=== PATIENT | male | born 1940 | race Caucasian/White ===

== ENCOUNTER 2018-01-03 07:22 | Inpatient (IN) | payer MEDICARE, OTHER ==
[~2018-01-03] VITALS: Ht 177.8 cm; Wt 84.8 kg
[2018-01-03] MEDS ORDERED: SODIUM CHLORIDE 0.9% 1000ML 1,000 ML IV STA (07:51)
[2018-01-03 08:12] LABS: BASOPHILS % 0.3 % (0.0-1.0); EOSINOPHILS % 0.1 % (0.0-6.0); HEMATOCRIT 38.2 % (38.2-49.6); HEMOGLOBIN 14.1 g/dL (14.0-18.0); LYMPHOCYTES % 11.5 % (18.0-39.1); MEAN CORPUSCULAR HGB CONC 36.9 g/dL (31-35); MONOCYTES # (AUTO) 0.6 (0.2-0.8); MONOCYTES % 7.3 % (4.4-11.3); NEUTROPHILS # (AUTO) 7.1 (2.1-6.9); NEUTROPHILS % 80.3 % (38.7-80.0); RED BLOOD COUNT 4.55 x10e6/uL (4.3-5.7); RED CELL DISTRIBUTION WIDTH 12.3 % (11.7-14.4)
[2018-01-03 08:13] LABS: PLATELET COUNT 79 x10e3/uL (140-360)
[2018-01-03 08:20] LABS: BILIRUBIN,URINE NEGATIVE (NEGATIVE); CLARITY,URINE SL CLOUDY (CLEAR); COLOR,URINE YELLOW (YELLOW); KETONES,URINE TRACE (NEGATIVE); LEUKOCYTE ESTERASE ,URINE NEGATIVE (NEGATIVE); NITRITE,URINE NEGATIVE (NEGATIVE); PROTEIN,URINE DIPSTICK 2+ (NEGATIVE); URINE UROBILINOGEN 0.2 mg/dL (0.2 - 1)
[2018-01-03 08:30] LABS: CALCIUM 9.1 mg/dL (8.4-10.2); CREATININE, SERUM 1.21 mg/dL (0.72-1.25)
[2018-01-03 08:32] LABS: RBC,URINE 0-5 /HPF (0-5); WBC,URINE (MAN) 0-5 /HPF (0-5)
[2018-01-03 08:33] LABS: BACTERIA,URINE MANY /HPF; EPITHELIAL CELLS,URINE RARE /LPF
[2018-01-03] MEDS ORDERED: CEFTRIAXONE SOD 1 GM VIAL IV SCH (09:00)
[2018-01-03 09:06] LABS: INR 1.15; PARTIAL THROMBOPLASTIN TIME 30.1 seconds (23.8-35.5); PROTHROMBIN TIME 13.8 seconds (11.9-14.5)
[2018-01-03] MEDS: ONDANSETRON HCL INJ 2 MG/ML VIAL IV PRN (09:28)
--- NOTE | 2018-01-03 09:42 | Diagnostic Imaging Report ---
PROCEDURE: CHEST SINGLE (PORTABLE) COMPARISON: None. INDICATIONS: FEVER, WEAK, FALL FINDINGS: LUNGS: No consolidations or edema. Several calcified granulomas. Mild interstitial prominence. PLEURA: Multiple calcified pleural plaques. HEART \T\ MEDIASTINUM: The heart is within normal size-limits. BONES \T\ SOFT TISSUES: No acute findings. CONCLUSION: 1. Multiple calcified pleural plaques. 2. Mild interstitial prominence is nonspecific. Pete Davalos D.O. Dictated by: Pete Davalos D.O. on 01/03/2018 at 8:34 Electronically approved by: Pete Davalos D.O. on 01/03/2018 at 8:34
[2018-01-03] MEDS: SODIUM CHLORIDE 0.9% 1000ML 1,000 ML IV SCH ×2 (10:27→17:12)
[2018-01-03 10:29] LABS: AMYLASE 66 U/L (25-125); LIPASE 62 U/L (8-78)
[2018-01-03 11:39] VITALS: BP 152/95
--- NOTE | 2018-01-03 11:39 | Diagnostic Imaging Report ---
EXAM: Complete Abdominal Ultrasound INDICATION: \S\R/O GALL STONES \[id number] \S\1020 COMPARISON: None. TECHNIQUE: Transverse and longitudinal images of the upper abdomen were obtained. FINDINGS: Liver: Size: 17.5 cm in the right midclavicular line, mildly enlarged Appearance: Increased echogenicity, smooth contour Mass: No focal masses Spleen: Size: 11.3 cm in length, normal Echogenicity: Normal Mass: No focal masses. Multiple echogenic foci are probably calcified granulomas. Gallbladder: Limited visualization due to bowel gas. Stones/Sludge: None Wall: 0.3 cm Appearance: No pericholecystic fluid or hydrops. Sonographic Huddleston's Sign: Negative Bile Ducts: Intrahepatic Ducts: No dilatation Extrahepatic Ducts: Common bile duct measures 0.5 cm, no dilatation Pancreas: Visualized pancreas is unremarkable. Right Kidney: Size: 11.7 cm Echogenicity: Normal Parenchymal thickness: Normal Collecting System: No hydronephrosis Stone: None Cyst/Mass: None Left Kidney: Size: 11.2 cm Echogenicity: Normal Parenchymal thickness: Normal Collecting System: No hydronephrosis Stone: None Cyst/Mass: None Vessels: Aorta: Visualized portions are normal Inferior Vena Cava: Visualized portions are normal Main Portal Vein: 1 cm, normal size with hepatopetal flow. Free Fluid: No ascites or pleural effusion IMPRESSION: Mildly enlarged steatotic liver. Evaluation of gallbladder is limited due to overlying bowel gas and suboptimal distention. However, no definite gallstones visualized. Signed by: Dr. Jona Banuelos MD on 01/03/2018 11:36 AM
[2018-01-03] MEDS: PIPER-TAZ 3.375 GM 50 ML IV SCH ×2 (12:00→19:55)
--- NOTE | 2018-01-03 12:13 | Diagnostic Imaging Report ---
PROCEDURE:X-RAY ABDOMEN - KUB COMPARISON:None. INDICATIONS:DIARRHEA FINDINGS: There is a non-obstructed bowel-gas pattern. There are no calcifications projected over the renal shadows. There are no acute osseous abnormalities. Degenerative changes of the spine and bilateral hips. The lung bases are clear. CONCLUSION: Nonobstructive bowel gas pattern. Dictated by: Jona Banuelos M.D. on 01/03/2018 at 12:17 Electronically approved by: Jona Banuelos M.D. on 01/03/2018 at 12:17
--- NOTE | 2018-01-03 13:25 | History and Physical ---
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 HISTORY OF PRESENT ILLNESS: Mr. Edgar Faith is a 77-year-old male patient whom I have seen on this Wednesday, 3 days ago, with a fever of 101, and the patient had some abdominal discomfort and diarrhea, but no urinary symptom, no cough, no sore throat, no chest pain. Subsequently, patient stated that his fever had subsided, but patient was continued to be very weak and continued to have diarrhea. Patient was having chills, shakiness, and tremulousness. This morning, patient was trying to get up and patient had a fall and patient was brought into the ER. The patient also has a poor appetite. ALLERGIES: NO KNOWN DRUG ALLERGIES. SOCIAL HISTORY: Patient used to smoke and does smoke occasionally. Denies using alcohol. REVIEW OF SYSTEMS: As per history of present illness. PAST MEDICAL HISTORY: Hypertension, coronary artery disease. CURRENT MEDICATIONS: See from the list. PHYSICAL EXAMINATION GENERAL: He is an elderly male patient lying in bed not in any acute distress, but patient has tremulousness. VITAL SIGNS: Blood pressure 90/60, temperature 99, pulse rate 100, respiration rate 20. HEENT: Normocephalic, atraumatic. NECK: No JVD. No lymphadenopathy. LUNGS: Bilateral equal air entry. Basal rales present. NEUROLOGICAL: No focal neurological deficit. The patient has generalized tremor. EXTREMITIES: No edema. Right side head, patient has ecchymosis. ADMISSION IMPRESSION AND DIAGNOSES 1. Hyponatremia. 2. Status post orthostatic dizziness, fall and syncope. 3. Thrombocytopenia on a febrile patient. 4. Possible sepsis. 5. Colitis; rule out Clostridium difficile colitis. 6. Urinary tract infection. 7. Hypotension. PLAN: We will admit patient with the above diagnoses, give IV fluids. We will give IV antibiotics, IV Zosyn and Flagyl. We will obtain ID consultation. Job#: [id number] ERMA
[2018-01-03] MEDS: ACETAMINOPHEN 325 MG TAB PO PRN ×2 (13:50→19:55)
[2018-01-03] MEDS: METRONIDAZOLE 500MG/NS 100ML 100 ML IV SCH ×2 (14:00→21:50)
[2018-01-03 15:33] VITALS: BP 137/62
[2018-01-03 16:49] LABS: CREATINE KINASE MB 1.2 ng/mL (0-5.0)
[2018-01-03 17:07] VITALS: BP 152/95
[2018-01-03 18:49] VITALS: BP 152/95
[2018-01-03 20:00] VITALS: BP 141/61
[2018-01-03] MEDS: ATORVASTATIN 10 MG TAB PO SCH (20:07)
[2018-01-03] MEDS ORDERED: AMOXICILLIN/CLAVULANATE K 875 MG TAB PO SCH (21:00)
--- NOTE | 2018-01-03 21:52 | Consultation ---
DATE OF CONSULTATION: January 03, 2018 INFECTIOUS DISEASE CONSULTATION REASON FOR CONSULTATION: Fever and chills, urgency and frequency. HISTORY OF PRESENT ILLNESS: This patient, who is a very pleasant 77-year-old gentleman, denies any past medical history but according to the H\T\P he does have hypertension and coronary artery disease and appendectomy at the age of 15. The patient comes in with a few days' history of fever, chills, not feeling well, some urgency. The patient went to see a physician, gave him some oral antibiotic, but the patient continued to have fever and chills. So, the patient is sent to the hospital to be admitted. He says he also passed out x1. When he first came, he was running a fever of 102.4, heart rate 93, blood pressure 137/62. PHYSICAL EXAMINATION: GENERAL: He is currently alert, oriented, does not seem to be in acute distress. VITAL SIGNS: Stable. Currently afebrile. HEENT: He does not appear icteric. NECK: Supple. CHEST: Clear. HEART: S1 and S2. No S3, no S4, no murmur. ABDOMEN: Soft. Bowel sounds present. No tenderness. EXTREMITIES: No edema. SKIN: There is no rash. JOINTS: There is no erythema or edema. PAST MEDICAL HISTORY: As mentioned above. Hypertension. Heart disease. PAST SURGICAL HISTORY: Appendectomy. ALLERGIES: NKA. SOCIAL HISTORY: He smokes occasionally. REVIEW OF SYSTEMS: Besides what is mentioned above, HEENT: Negative. PULMONARY: Negative. CARDIAC: Negative. GI: Negative. SKIN: There is no rash. Patient had ultrasound of the abdomen which showed mildly enlarged liver. His chest x-ray showed multiple calcified pleural plaques. IMPRESSION: Fever and chills. May be pyelonephritis. It is hard to tell this early. Agree with Blood cultures urine cultures. Unfortunately, they have not been done yet. He is already on antibiotic. Continue with Zosyn. Recheck CBC, recheck chem panel, check amylase/lipase. Will follow with you. Job#: [id number] KIRSTIN
[2018-01-04] VITALS: BP 106/51
[2018-01-04] MEDS: SODIUM CHLORIDE 0.9% 1000ML 1,000 ML IV SCH ×3 (00:56→20:10)
[2018-01-04] MEDS: ACETAMINOPHEN 325 MG TAB PO PRN ×3 (02:07→20:17)
[2018-01-04 03:34] LABS: CREATINE KINASE MB 1.2 ng/mL (0-5.0)
[2018-01-04] MEDS: PIPER-TAZ 3.375 GM 50 ML IV SCH (03:51)
[2018-01-04 04:00] VITALS: BP 139/60
[2018-01-04] MEDS: METRONIDAZOLE 500MG/NS 100ML 100 ML IV SCH (05:07)
[2018-01-04] MEDS: LEVOTHYROXINE SODIUM 112 MCG TAB PO SCH (05:08)
[2018-01-04 05:43] LABS: BASOPHILS % 0.5 % (0.0-1.0); EOSINOPHILS % 0.2 % (0.0-6.0); HEMATOCRIT 32.3 % (38.2-49.6); HEMOGLOBIN 11.8 g/dL (14.0-18.0); LYMPHOCYTES # (AUTO) 0.8 (1.0-3.2); LYMPHOCYTES % 12.9 % (18.0-39.1); MEAN CORPUSCULAR HEMOGLOBIN 31.2 pg (28-32); MEAN CORPUSCULAR HGB CONC 36.5 g/dL (31-35); MEAN CORPUSCULAR VOLUME 85.4 fL (81-99); MONOCYTES # (AUTO) 0.4 (0.2-0.8); MONOCYTES % 6.2 % (4.4-11.3); NEUTROPHILS % 79.6 % (38.7-80.0); PLATELET COUNT 71 x10e3/uL (140-360); RED BLOOD COUNT 3.78 x10e6/uL (4.3-5.7); RED CELL DISTRIBUTION WIDTH 12.7 % (11.7-14.4)
[2018-01-04 05:58] LABS: ALANINE AMINOTRANSFERASE 74 IU/L (0-55); ALBUMIN 2.8 g/dL (3.5-5.0); ALBUMIN/GLOBULIN RATIO 0.9 (0.8-2.0); ALKALINE PHOSPHATASE 40 IU/L (40-150); ANION GAP 11.7 mmol/L (8-16); BLOOD UREA NITROGEN 16 mg/dL (7-26); BUN/CREATININE RATIO 15 (6-25); CARBON DIOXIDE 21 mmol/L (22-29); CHLORIDE 97 mmol/L (98-107); CREATININE, SERUM 1.05 mg/dL (0.72-1.25); EST GLOMERULAR FILTRATION RATE > 60 ML/MIN (60-); GLUCOSE 102 mg/dL (74-118); POTASSIUM 3.7 mmol/L (3.5-5.1); SODIUM 126 mmol/L (136-145)
[2018-01-04 07:19] LABS: ANISOCYTOSIS SLIGHT; BAND NEUTROPHILS % (MANUAL) 1 %; LYMPHOCYTES % (MANUAL) 14 % (19-48); MONOCYTES % (MANUAL) 5 % (3.4-9.0); NEUTROPHILS % (MANUAL) 77 % (40-74); PLATELET ESTIMATE SLIGHTLY DECREASED; PLATELET MORPHOLOGY COMMENT NORMAL; RBC MORPHOLOGY COMMENT NORMAL
[2018-01-04 08:02] VITALS: BP 125/57
[2018-01-04] MEDS: BISOPROLOL FUMARATE 10 MG TAB PO SCH (09:00)
[2018-01-04] MEDS: ASPIRIN 81 MG CHEW TAB PO SCH (09:00)
[2018-01-04 11:00] VITALS: BP 121/67
[2018-01-04] MEDS: CEFEPIME HCL 1 GM VIAL IV SCH ×2 (11:11→23:00)
[2018-01-04] MEDS: METRONIDAZOLE 500 MG TAB PO SCH ×3 (12:00→23:48)
[2018-01-04 16:23] VITALS: BP 95/62
[2018-01-04 20:00] VITALS: BP 132/60
[2018-01-04] MEDS: ATORVASTATIN 10 MG TAB PO SCH (20:10)
[2018-01-05] VITALS (8 sets, daily range): BP systolic 96–195; BP diastolic 52–67
[2018-01-05] MEDS: SODIUM CHLORIDE 0.9% 1000ML 1,000 ML IV SCH ×3 (05:00→19:50)
[2018-01-05] MEDS: LEVOTHYROXINE SODIUM 112 MCG TAB PO SCH (05:01)
[2018-01-05] MEDS: METRONIDAZOLE 500 MG TAB PO SCH ×3 (05:01→17:46)
[2018-01-05 05:28] LABS: BASOPHILS % 0.4 % (0.0-1.0); EOSINOPHILS % 0.4 % (0.0-6.0); HEMATOCRIT 31.1 % (38.2-49.6); HEMOGLOBIN 11.2 g/dL (14.0-18.0); LYMPHOCYTES # (AUTO) 0.8 (1.0-3.2); LYMPHOCYTES % 9.1 % (18.0-39.1); MEAN CORPUSCULAR HEMOGLOBIN 31.2 pg (28-32); MEAN CORPUSCULAR VOLUME 86.6 fL (81-99); MONOCYTES # (AUTO) 0.5 (0.2-0.8); MONOCYTES % 5.5 % (4.4-11.3); NEUTROPHILS # (AUTO) 7.1 (2.1-6.9); NEUTROPHILS % 84.1 % (38.7-80.0); PLATELET COUNT 77 x10e3/uL (140-360); RED BLOOD COUNT 3.59 x10e6/uL (4.3-5.7); RED CELL DISTRIBUTION WIDTH 12.7 % (11.7-14.4)
[2018-01-05 05:52] LABS: ALANINE AMINOTRANSFERASE 73 IU/L (0-55); ALBUMIN 2.7 g/dL (3.5-5.0); ALBUMIN/GLOBULIN RATIO 0.9 (0.8-2.0); ALKALINE PHOSPHATASE 42 IU/L (40-150); ANION GAP 10.8 mmol/L (8-16); BLOOD UREA NITROGEN 14 mg/dL (7-26); BUN/CREATININE RATIO 15 (6-25); CALCIUM 7.9 mg/dL (8.4-10.2); CARBON DIOXIDE 21 mmol/L (22-29); CHLORIDE 99 mmol/L (98-107); CREATININE, SERUM 0.94 mg/dL (0.72-1.25); EST GLOMERULAR FILTRATION RATE > 60 ML/MIN (60-); GLUCOSE 92 mg/dL (74-118); POTASSIUM 3.8 mmol/L (3.5-5.1); SODIUM 127 mmol/L (136-145)
[2018-01-05 06:48] LABS: BAND NEUTROPHILS % (MANUAL) 10 %; EOSINOPHILS % (MANUAL) 1 % (0-7); LYMPHOCYTES % (MANUAL) 7 % (19-48); MONOCYTES % (MANUAL) 3 % (3.4-9.0); NEUTROPHILS % (MANUAL) 77 % (40-74); PROMYELOCYTES % (MANUAL) 1 % (0-0)
[2018-01-05 06:49] LABS: ANISOCYTOSIS SLIGHT; HYPOCHROMASIA SLIGHT; PLATELET ESTIMATE SLIGHTLY DECREASED; PLATELET MORPHOLOGY COMMENT FEW LARGE; RBC MORPHOLOGY COMMENT NORMAL
[2018-01-05] MEDS: ASPIRIN 81 MG CHEW TAB PO SCH (08:10)
[2018-01-05] MEDS: BISOPROLOL FUMARATE 10 MG TAB PO SCH (08:10)
[2018-01-05] MEDS: ACETAMINOPHEN 325 MG TAB PO PRN ×2 (08:20→20:05)
[2018-01-05 09:07] LABS: CLARITY,URINE CLEAR (CLEAR); COLOR,URINE AMBER (YELLOW); LEUKOCYTE ESTERASE ,URINE TRACE (NEGATIVE); NITRITE,URINE NEGATIVE (NEGATIVE); PROTEIN,URINE DIPSTICK 1+ (NEGATIVE)
[2018-01-05 09:08] LABS: BILIRUBIN,URINE NEGATIVE (NEGATIVE); KETONES,URINE 2+ (NEGATIVE); URINE UROBILINOGEN 0.2 mg/dL (0.2 - 1)
[2018-01-05 09:16] LABS: EPITHELIAL CELLS,URINE RARE /LPF; WBC,URINE (MAN) 0-5 /HPF (0-5)
[2018-01-05 09:17] LABS: MUCUS,URINE RARE (RARE)
[2018-01-05] MEDS: CEFEPIME HCL 1 GM VIAL IV SCH ×2 (11:50→22:36)
[2018-01-05] MEDS: VANCOMYCIN 250MG/5ML ORAL SOLN PO SCH ×2 (11:56→17:46)
--- NOTE | 2018-01-05 13:32 | Diagnostic Imaging Report ---
PROCEDURE:CT CHEST WITH CONTRAST COMPARISON:None. INDICATIONS:FEVER, HYPONATREMIA TECHNIQUE: Axial CT images of the chest were obtained from the thoracic inlet to the upper abdomen. Coronal and sagittal reformations were made available for review. A total of 100 cc of Isovue 370 iodinated intravenous contrast was administered. RADIATION DOSE: Total DLP: 775.6 mGy*cm FINDINGS: Lungs: There has been interval development of a 1.5 cm mixed solid/ground glass nodule in the left upper lobe series 4, image 67. Bilateral apical calcified granulomas. There is right apical opacity, which appears increased from CT on 02/18/11, likely reflecting sequela of prior granulomatous disease. Extensive bilateral calcified pleural plaques. Upper lobe predominant centrilobular emphysema is again noted. Subpleural opacity in the right lower lobe on series 4 image 67 likely reflects atelectasis. Pleura: No pleural effusion or pneumothorax. Again noted are numerous bilateral calcified pleural plaques most pronounced at the lung bases, suggestive of remote asbestos exposure. Heart \T\ Mediastinum: The thyroid gland is normal. No significant mediastinal, hilar or axillary lymphadenopathy is seen. A few calcified mediastinal lymph nodes are noted. Atherosclerotic coronary and aortic calcifications are noted. No evidence of pericardial effusion. Pericardial calcification is noted. Upper abdomen:Please refer to the concurrently performed abdominal CT for further details. Musculoskeletal:Scattered degenerative changes. No suspicious lytic or blastic lesions. CONCLUSION: No evidence of pneumonia. Upper lobe predominant emphysematous changes of the lungs. Interval development of a 1.5 cm mixed solid/ground glass nodule in the left upper lobe. Findings suggestive of remote asbestos exposure. Please refer to the separately dictated CT of the abdomen/pelvis for details of intraabdominal findings. RECOMMENDATION: PET/CT for further evaluation of left upper lobe mixed solid/ground glass nodule. Dictated by: YNI GOMEZ M.D. on 01/05/2018 at 13:37 Electronically approved by: YIN GOMEZ M.D. on 01/05/2018 at 13:37
--- NOTE | 2018-01-05 13:43 | Diagnostic Imaging Report ---
PROCEDURE:CT ABDOMEN AND PELVIS WITH CONTRAST COMPARISON:None. INDICATIONS:FEVER, HYPONATREMIA TECHNIQUE: Multidetector CT scanning of the abdomen and pelvis was performed after the administration of 100 cc Isovue 370 contrast. Coronal and sagittal reformations were obtained. Routine protocol performed. FINDINGS: Lung bases: Please refer to concurrently performed chest CT. Liver: No evidence of liver lesion or biliary ductal dilatation. Scattered calcified granulomas. Spleen: Multiple calcified splenic granulomas. No splenomegaly. Pancreas: No evidence of pancreatic duct dilatation or mass. Adrenal Glands: No evidence of adrenal nodule. Kidneys: No evidence of hydronephrosis or stone. 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 Gastrointestinal: No evidence of bowel obstruction or wall thickening. There is sigmoid colonic diverticulosis without CT evidence of diverticulitis. Per clinical history, the patient is status post appendectomy. Vasculature: Atherosclerotic calcifications of the abdominal aorta and branch vessels. Peritoneum/Retroperitoneum: No free air or free fluid. Bladder: No evidence of wall thickening or stone. Reproductive organs: Unremarkable. Musculoskeletal: Scattered degenerative changes. No suspicious lytic or blastic lesions. CONCLUSION: No acute abnormality in the abdomen or pelvis. No evidence of colitis or abscess. Please refer to the concurrently performed chest CT for details of intrathoracic findings. Dictated by: YIN GOMEZ M.D. on 01/05/2018 at 13:48 Electronically approved by: YIN GOMEZ M.D. on 01/05/2018 at 13:48
[2018-01-05] MEDS ORDERED: IOPAMIDOL 370 MG/ML 200 ML INFUS..BTL INJ ONE (13:58)
[2018-01-05] MEDS ORDERED: SODIUM CHLORIDE 0.9% 50ML 50 ML ONE (13:58)
[2018-01-05] MEDS: ATORVASTATIN 10 MG TAB PO SCH (20:06)
[2018-01-06] VITALS (8 sets, daily range): BP systolic 91–138; BP diastolic 54–64
[2018-01-06] MEDS: METRONIDAZOLE 500 MG TAB PO SCH ×4 (00:24→17:45)
[2018-01-06] MEDS: VANCOMYCIN 250MG/5ML ORAL SOLN PO SCH ×2 (00:24→06:01)
[2018-01-06 05:49] LABS: BASOPHILS % 0.3 % (0.0-1.0); EOSINOPHILS # (AUTO) 0.1 (0.0-0.4); EOSINOPHILS % 0.9 % (0.0-6.0); HEMATOCRIT 29.5 % (38.2-49.6); HEMOGLOBIN 10.7 g/dL (14.0-18.0); LYMPHOCYTES % 9.8 % (18.0-39.1); MEAN CORPUSCULAR HEMOGLOBIN 31.3 pg (28-32); MEAN CORPUSCULAR HGB CONC 36.3 g/dL (31-35); MEAN CORPUSCULAR VOLUME 86.3 fL (81-99); MONOCYTES # (AUTO) 0.5 (0.2-0.8); MONOCYTES % 4.7 % (4.4-11.3); NEUTROPHILS # (AUTO) 8.5 (2.1-6.9); NEUTROPHILS % 83.2 % (38.7-80.0); PLATELET COUNT 110 x10e3/uL (140-360); RED BLOOD COUNT 3.42 x10e6/uL (4.3-5.7)
[2018-01-06] MEDS: LEVOTHYROXINE SODIUM 112 MCG TAB PO SCH (06:00)
[2018-01-06] MEDS: SODIUM CHLORIDE 0.9% 1000ML 1,000 ML IV SCH ×3 (06:00→21:52)
[2018-01-06 06:14] LABS: ALANINE AMINOTRANSFERASE 71 IU/L (0-55); ALBUMIN 2.5 g/dL (3.5-5.0); ALBUMIN/GLOBULIN RATIO 0.8 (0.8-2.0); ALKALINE PHOSPHATASE 45 IU/L (40-150); ANION GAP 9.4 mmol/L (8-16); BLOOD UREA NITROGEN 14 mg/dL (7-26); BUN/CREATININE RATIO 16 (6-25); CALCIUM 7.7 mg/dL (8.4-10.2); CARBON DIOXIDE 23 mmol/L (22-29); CHLORIDE 99 mmol/L (98-107); CREATININE, SERUM 0.88 mg/dL (0.72-1.25); EST GLOMERULAR FILTRATION RATE > 60 ML/MIN (60-); GLUCOSE 112 mg/dL (74-118); POTASSIUM 3.4 mmol/L (3.5-5.1); SODIUM 128 mmol/L (136-145)
[2018-01-06] MEDS: ONDANSETRON HCL INJ 2 MG/ML VIAL IV PRN (06:49)
[2018-01-06 07:01] LABS: BAND NEUTROPHILS % (MANUAL) 4 %; LYMPHOCYTES % (MANUAL) 10 % (19-48); MONOCYTES % (MANUAL) 3 % (3.4-9.0); NEUTROPHILS % (MANUAL) 83 % (40-74); RBC MORPHOLOGY COMMENT NORMAL
[2018-01-06 07:02] LABS: ANISOCYTOSIS SLIGHT; HYPOCHROMASIA SLIGHT
[2018-01-06 07:04] LABS: PLATELET ESTIMATE MODERATELY DECREASED; PLATELET MORPHOLOGY COMMENT FEW LARGE; POIKILOCYTOSIS SLIGHT
[2018-01-06] MEDS: ASPIRIN 81 MG CHEW TAB PO SCH (08:56)
[2018-01-06] MEDS: BISOPROLOL FUMARATE 10 MG TAB PO SCH (08:57)
[2018-01-06] MEDS: CEFEPIME HCL 1 GM VIAL IV SCH ×2 (10:13→21:52)
[2018-01-06] MEDS ORDERED: POTASSIUM CHLORIDE 10 MEQ TABCR PO ONE (10:15)
[2018-01-06] MEDS: ATORVASTATIN 10 MG TAB PO SCH (21:51)
[2018-01-07] VITALS: BP 129/70
[2018-01-07] MEDS: METRONIDAZOLE 500 MG TAB PO SCH ×2 (00:30→06:01)
[2018-01-07 04:00] VITALS: BP 132/63
[2018-01-07 05:05] LABS: BASOPHILS % 0.2 % (0.0-1.0); EOSINOPHILS # (AUTO) 0.1 (0.0-0.4); EOSINOPHILS % 0.5 % (0.0-6.0); HEMATOCRIT 29.8 % (38.2-49.6); LYMPHOCYTES # (AUTO) 0.9 (1.0-3.2); LYMPHOCYTES % 9.4 % (18.0-39.1); MEAN CORPUSCULAR HEMOGLOBIN 31.7 pg (28-32); MEAN CORPUSCULAR HGB CONC 36.9 g/dL (31-35); MEAN CORPUSCULAR VOLUME 85.9 fL (81-99); MONOCYTES # (AUTO) 0.4 (0.2-0.8); MONOCYTES % 4.6 % (4.4-11.3); NEUTROPHILS # (AUTO) 7.9 (2.1-6.9); NEUTROPHILS % 84.3 % (38.7-80.0); PLATELET COUNT 172 x10e3/uL (140-360); RED BLOOD COUNT 3.47 x10e6/uL (4.3-5.7); RED CELL DISTRIBUTION WIDTH 13.3 % (11.7-14.4)
[2018-01-07 05:20] LABS: ALANINE AMINOTRANSFERASE 55 IU/L (0-55); ALBUMIN 2.5 g/dL (3.5-5.0); ALBUMIN/GLOBULIN RATIO 0.8 (0.8-2.0); ALKALINE PHOSPHATASE 53 IU/L (40-150); ANION GAP 10.7 mmol/L (8-16); BLOOD UREA NITROGEN 13 mg/dL (7-26); BUN/CREATININE RATIO 16 (6-25); CALCIUM 7.7 mg/dL (8.4-10.2); CARBON DIOXIDE 22 mmol/L (22-29); CHLORIDE 99 mmol/L (98-107); EST GLOMERULAR FILTRATION RATE > 60 ML/MIN (60-); GLUCOSE 98 mg/dL (74-118); POTASSIUM 3.7 mmol/L (3.5-5.1); SODIUM 128 mmol/L (136-145)
[2018-01-07] MEDS: LEVOTHYROXINE SODIUM 112 MCG TAB PO SCH (06:01)
[2018-01-07] MEDS: ONDANSETRON HCL INJ 2 MG/ML VIAL IV PRN (06:01)
[2018-01-07] MEDS: ACETAMINOPHEN 325 MG TAB PO PRN (06:53)
[2018-01-07 06:55] LABS: LYMPHOCYTES % (MANUAL) 6 % (19-48); MONOCYTES % (MANUAL) 6 % (3.4-9.0); NEUTROPHILS % (MANUAL) 86 % (40-74)
[2018-01-07 06:56] LABS: ANISOCYTOSIS SLIGHT; HYPOCHROMASIA SLIGHT; PLATELET ESTIMATE ADEQUATE; PLATELET MORPHOLOGY COMMENT NORMAL; RBC MORPHOLOGY COMMENT NORMAL
[2018-01-07 07:00] VITALS: BP 109/58
[2018-01-07 07:45] VITALS: BP 109/58
[2018-01-07] MEDS: ASPIRIN 81 MG CHEW TAB PO SCH (08:05)
[2018-01-07] MEDS: SODIUM CHLORIDE 0.9% 1000ML 1,000 ML IV SCH (08:06)
[2018-01-07] MEDS: BISOPROLOL FUMARATE 10 MG TAB PO SCH (08:06)
[2018-01-07] MEDS ORDERED: FLAGYL250 MG PO (10:37)
[2018-01-07] MEDS ORDERED: CEFUROXIME500 MG PO (10:39)
--- NOTE | 2018-01-07 11:18 | Discharge Summary ---
Mr. Edgar Faith is a 77-year-old male patient who presented to the emergency room with complaint of fever of 101, abdominal discomfort and diarrhea. ADMITTING IMPRESSION AND DIAGNOSES 1. Febrile illness. 2. Thrombocytopenia. 3. Sepsis. 4. Orthostasis. 5. Dizziness. 6. Syncope and fall because of dizziness. 7. Hyponatremia. 8. Gastroenteritis. 9. Diarrhea. 10. Colitis. 11. Urinary tract infection. 12. Hypotension. 13. History of coronary artery disease, hypertension and asbestosis. HOSPITAL COURSE SUMMARY: The patient was admitted with the above diagnoses. The patient was treated with IV antibiotic Zosyn, and Flagyl was added for possible C. diff. The patient continued to have diarrhea and remained hyponatremic, so the patient was given IV fluids. The patient continued to have diarrhea, so a CT scan of the abdomen and chest was done . CT of the abdomen was negative for any structural lesion or any colitis. CT chest was showing some nodules, asbestosis, some emphysematous changes in the upper lobes, and a 1.5-cm lung nodule. The patient's blood and urine cultures were negative. Stool was positive, but the C. diff was negative. Stool for calprotectin is pending. Antibiotics were changed from Zosyn to cefepime. The patient was getting p.o. Flagyl. Now upon stabilization, the patient will be discharged home. The patient was advised to replace the fluid depending on the frequency of the bowels and have salt intake. The patient will be discharged home on Flagyl and Ceftin antibiotics for 1 week. The patient will be followed up as an outpatient. CLAY HERNANDEZ MD Job#: [id number]
== END 2018-01-07 11:26 | disposition home or self-care (01) | DRG 872 ==
LOC: ER 07:22 → ERHOLD 10:41 → MED/SURG3 11:17 → OBSVTOIN 01-04 14:42
PROVIDERS: ADMIT Internal Medicine; ATTEND Internal Medicine
DX: A41.9 Sepsis, unspecified organism (principal); E87.1 Hypo-osmolality and hyponatremia; A09 Infectious gastroenteritis and colitis, unspecified; N12 Tubulo-interstitial nephritis, not specified as acute or chronic; D69.6 Thrombocytopenia, unspecified; I25.10 Atherosclerotic heart disease of native coronary artery without angina pectoris; J61 Pneumoconiosis due to asbestos and other mineral fibers; R35.0 Frequency of micturition; R91.1 Solitary pulmonary nodule; R55 Syncope and collapse; I10 Essential (primary) hypertension
CPT/HCPCS: 36415; 71045; 71260; 74018; 74177; 76700; 80048; 80053; 81001; 82150; 82270; 82550; 82553; 83605; 83690; 83993; 84484; 85025; 85610; 85730; 87040; 87045; 87086; 87493; 93005; 96361; 99284; G0378; J0692; J0696; J2405; J2543; J7030; Q9967

== ENCOUNTER → 2025-01-17 | Outpatient (REF) | payer MEDICARE, OTHER ==
[~2025-01-17] MED LIST: CEFUROXIME500 MG PO; FLAGYL250 MG PO
== END ==
LOC: RAD 11:57
PROVIDERS: ATTEND Internal Medicine
DX: L40.50 Arthropathic psoriasis, unspecified (principal)
CPT/HCPCS: 72110; 72170